=== PATIENT | male | born 1995 | race African-American/Black ===

== ENCOUNTER 2022-06-13 02:55 | Emergency (ER) | payer MEDICAID ==
[~2022-06-13] VITALS: Ht 177.8 cm; Wt 77.0 kg
[2022-06-13 04:44] LABS: CHLORIDE 101 mEq/L (98-107)
[2022-06-13 04:50] LABS: BASOPHILS % 0.2 % (0.0-2.0); EOSINOPHILS % 3.1 % (0.0-5.0); HEMOGLOBIN. 13.6 g/dL (14.0-18.0); LYMPHOCYTES % 27.1 % (20.0-50.0); MEAN CORPUSCULAR HEMOGLOBIN 31.7 pg (28.0-32.0); MEAN CORPUSCULAR VOLUME 93.5 fL (80.0-94.0); MEAN PLATELET VOLUME 8.4 fl (7.4-10.4); MONOCYTES % 10.7 % (2.0-8.0); NEUTROPHILS % 58.9 % (40.0-76.0); PLATELET 200 x1000/uL (130-400); RED BLOOD CELL COUNT 4.28 mill/uL (4.7-6.1); RED CELL DISTRIBUTION WIDTH 12.7 % (11.6-14.6)
[2022-06-13 05:01] LABS: ETHANOL BLOOD < 10 mg/dL
[2022-06-13 08:00] VITALS: BP 120/80
== END 2022-06-13 09:57 | disposition home or self-care (01) ==
LOC: ER 03:11
DX: F15.10 Other stimulant abuse, uncomplicated (principal); F22 Delusional disorders; F31.9 Bipolar disorder, unspecified; F20.9 Schizophrenia, unspecified
CPT/HCPCS: 36415; 80053; 80307; 80320; 80329; 84443; 85025; 99284; G0480